=== PATIENT | female | born 1950 | race Hispanic/Latino ===

== ENCOUNTER 2019-08-26 18:31 | Emergency (ER) | payer MEDICARE, SELFPAY ==
--- NOTE | ~2019-08-26 | XR_ITS ---
EXAMINATION: XR chest 1V portable DATE: 08/26/2019 19:05 INDICATION: Cough. TECHNIQUE: A single frontal view of the chest was obtained. COMPARISON: CT abdomen and pelvis 12/15/2016 FINDINGS: The chest demonstrates clear lungs without pneumonia, pleural effusion, or pneumothorax. Th e heart size is normal. IMPRESSION: 1. No acute cardiopulmonary disease. Reviewed, dictated and finalized at location A.
[2019-08-26 18:36] VITALS: BP 134/57; PULSE 70; RESP 16; TEMP 37; O2SAT 100
--- NOTE | 2019-08-26 18:38 | ED.URI ---
HPI - URI/Sore Throat General Chief Complaint: Upper Respiratory Infection Stated Complaint: cough Time Seen by Provider: 08/26/19 18:32 Source: patient and RN notes reviewed Mode of arrival: ambulatory Limitations: no limitations History of Present Illness HPI Narrative: The pt does not speak Arabic so the Stratus was used to translate. A 68 y/o female presents to the ED with a constant dry cough for the past 1 month. She states that she has occasional chronic SOB. She notes that she was using Robitussin but denies it relieving her symptoms, so she stopped taking it. She denies any fevers, chills, wheezing, N/V/D, ABD pain, weakness, or dizziness. MD elicited complaint: cough (dry) Onset (ago): month(s) (1) Consistency: constant Relieving factors: nothing Associated symptoms: shortness of breath (occasional chronic) Treatments prior to arrival: cold medicine (Robitussin) Related Data Allergies Allergy/AdvReac Type Severity Reaction Status Date / Time No Known Allergies Allergy Verified 03/10/16 15:54 Review of Systems Review of Systems: All systems reviewed & are unremarkable except as noted in HPI and below Constitutional: Constitutional: Denies chills and Denies fever(s) Respiratory: Respiratory: Reports cough (dry), Reports dyspnea (occasional chronic) and Denies wheezing Gastrointestinal: Gastrointestinal: Denies abdominal pain, Denies diarrhea, Denies nausea and Denies vomiting Neurologic: Denies dizziness and Denies weakness PMFSH Past Medical History Medical History Arthritis Fibromyalgia GERD (gastroesophageal reflux disease) H/O: HTN (hypertension) Hx of cataract Hypercholesteremia Prolapsed bladder Uterine prolapse Surgical History Surgical History Surgical history unknown Family History Family History Father Family history of lung cancer, Onset Age: 80 Mother Family history of malignant neoplasm of ovary, Onset Age: 75 Social History Social History Smoking status: Never smoker Alcohol intake: never Exam Const: General: healthy appearing and no acute distress Nutritional Appearance: well nourished HENMT: Mouth: Yes lip normal and Yes moist mucous membranes Eyes: Conjunctivae: conjunctivae normal Pupils: Equal, round and reactive pupils present Resp: Effort & Inspection: normal respiratory effort Auscultation: clear to auscultation bilaterally Cardio: Rate: regular rate Rhythm: regular rhythm Heart sounds: no murmurs GI: GI Palp: Yes Soft to palpation and No Tenderness to palpation present (GI) Auscultation: normal bowel sounds Back/Spine/Pelvis: Other: Full ROM. Skin: General skin exam: normal color, dry skin and other (warm) Neuro: General: patient oriented x3 (alert) Speech: normal speech Extrem: General: full ROM Psych: Mental Status: mental status grossly normal Affect: normal affect Course Vital Signs Vital signs: Vital Signs Temperature 37.0 C 08/26/19 18:36 Pulse Rate 70 08/26/19 18:36 Respiratory Rate 16 08/26/19 18:36 Blood Pressure 134/57 L 08/26/19 18:36 Pulse Oximetry 100 08/26/19 18:36 Temperature 37.0 C 08/26/19 18:36 Pulse Rate 70 08/26/19 18:36 Respiratory Rate 16 08/26/19 18:36 Blood Pressure 134/57 L 08/26/19 18:36 Pulse Oximetry 100 08/26/19 18:36 MDM - URI/Sore Throat MDM Narrative Medical decision making narrative: She appears well. Vitals reassuring. CXR. Will discharge and ask her to self isolate. Differential Diagnosis Differential diagnosis: Likely upper respiratory infection and other (pneumonia, COVID-19) Medical Records Attestation: I reviewed the patient's medical records. Imaging Data Radiologist's impression: ITS Impressions Chest X-Ray 08/26/19 19:06 IMPRESSION: 1. No acute cardiopulmonary di
== END 2019-08-26 19:35 | disposition home or self-care (01) ==
LOC: ANHED 19:25
PROVIDERS: Emergency Provider Emergency Medicine
DX: J06.9 Acute upper respiratory infection, unspecified (principal); M19.90 Unspecified osteoarthritis, unspecified site; M79.7 Fibromyalgia; K21.9 Gastro-esophageal reflux disease without esophagitis; I10 Essential (primary) hypertension; E78.00 Pure hypercholesterolemia, unspecified
CPT/HCPCS: 71045; 99283

== ENCOUNTER 2020-03-05 10:38 | Outpatient (CLI) | payer MEDICARE, SELFPAY ==
--- NOTE | ~2020-03-05 | US_ITS ---
EXAMINATION: US right upper quadrant EXAM DATE: 03/05/2020 11:20 INDICATION: Right upper quadrant pain. TECHNIQUE: Multiple grayscale and Doppler images of the abdomen right upper quadrant were obtained (b y a technologist who performed the scan) and subsequently reviewed. There is no prior study for archie quintana. FINDINGS: The pancreatic head and body are normal in appearance. The pancreatic tail is not visualized. The l iver has normal echogenicity and contour. There are no focal liver lesions identified. There is no evidence of intrahepatic biliary duct dilation. Portal venous flow was seen in the hepatopedal, nor mal direction and has normal Doppler waveform. No right-sided hydronephrosis. Common bile duct measures 3 mm, which is normal. The gallbladder wall is normal in thickness, with ex pected amount of distention. No sonographic evidence of pericholecystic fluid. There is no cholelit hiases. Technologist performing exam reports patient did not demonstrate sonographic Palmer's sign. Please note that this sign is less reliable in patients who have received pain medication. IMPRESSION: 1. Unremarkable abdominal ultrasound exam. Reviewed, dictated and finalized at location B.
== END 2020-03-05 10:39 | disposition home or self-care (01) ==
PROVIDERS: PCP Physician Assistant; Visit Provider Internal Medicine Gastroenterology
DX: R10.11 Right upper quadrant pain (principal)
CPT/HCPCS: 76705

== ENCOUNTER 2020-07-19 21:19 | Emergency (ER) | payer MEDICARE, MEDICAID, SELFPAY ==
--- NOTE | ~2020-07-19 | CT_ITS ---
EXAMINATION: CTA chest PE protocol DATE: 07/20/2020 00:02 INDICATION: Chest pain, COVID 19 positive TECHNIQUE: Computed tomography angiography (CTA) of the chest was performed with 100 mL Omnipaque-350 intravenous contrast timed to evaluate the pulmonary arteries. Coronal maximum intensity projection 3D-reconstructions were created by the technologist. The dose-length product (DLP) was 601.30 mGy-cm. Automated exposure control and iterative reconstruction technique were employed. COMPARISON: None. FINDINGS: The pulmonary arteries are well-opacified. No pulmonary embolism is identified. There are s cattered patchy groundglass and nodular opacities of the lungs. No pleural effusion or pneumothorax i s identified. No pathologically enlarged thoracic lymph nodes are identified. The heart size is oleg l. There is mild thoracic spondylosis. IMPRESSION: 1. No pulmonary embolism. 2. Patchy nodular and groundglass opacities, consistent with COVID 19 pneumonia with the given clinic al history. Reviewed, dictated and finalized at location A. NESS PERFORMANCE SPECIALIST IMPRESSION: 1. No pulmonary embolism. 2. Patchy nodular and groundglass opacities, consistent with COVID 19 pneumonia with the given clinical history.
--- NOTE | ~2020-07-19 | XR_ITS ---
EXAMINATION: XR chest 1V portable EXAM DATE: 07/19/2020 22:14 INDICATION: COVID + 07/12/20 TECHNIQUE: Portable AP frontal chest x-ray was obtained. Comparison is made to prior examination from 08/26/2019. FINDINGS: Small amount of ill-defined right mid and lower lung zone airspace disease, could be develo ping COVID pneumonia given history provided. The lungs are otherwise clear. There are no pleural eff usions. The cardiomediastinal silhouette is within normal limits. There is no pneumothorax suspecte d. There are mild bony degenerative changes. There is aortic arteriosclerosis. IMPRESSION: Small amount of ill-defined right basilar airspace disease, possible developing pneumonia . Reviewed, dictated and finalized at location A. LRY STORE MANAGER IMPRESSION: Small amount of ill-defined right basilar airspace disease, possibl e developing pneumonia.
[2020-07-19 21:39] VITALS: BP 151/63; PULSE 69; RESP 18; TEMP 37.2; O2SAT 96
--- NOTE | 2020-07-19 21:59 | ECG_ITS ---
Measurements Intervals [place] Rate: 63 P: 66 KS: 115 QRS: 50 QRSD: 93 T: 51 QT: 417 QTc: 429 Interpretive Statements SINUS RHYTHM WITH SHORT [place] INTERVAL BORDERLINE ECG Electronically Signed On 07-20-2020 7:06:36 HEATER OPERATOR HELPER by Angel Kelly D.O.
--- NOTE | 2020-07-19 22:11 | ED.GENADULT ---
HPI - General Adult General Chief complaint: Upper Respiratory Infection Stated complaint: cough, covid+ Time Seen by Provider: 07/19/20 21:47 History of Present Illness HPI narrative: Patient is a 69-year-old female who presents the emergency department with chief complaint of chest discomfort. Patient reports that she was diagnosed on the with COVID-19 and has had a cough since then. The patient reports that today she had some discomfort in her chest and also her was having similar symptoms they decided to come to the emergency department for evaluation. Patient reports symptoms are worse with inspiration and improved with rest. Related Data Home Medications Medication Instructions Recorded Confirmed amlodipine 5 mg tablet 5 mg PO DAILY 07/13/20 lisinopril 10 mg tablet 10 mg PO DAILY 07/13/20 omeprazole 20 mg capsule,delayed 20 mg PO DAILY 07/13/20 release Allergies Allergy/AdvReac Type Severity Reaction Status Date / Time No Known Allergies Allergy Verified 03/10/16 15:54 Review of Systems Review of Systems: Narrative: A 10 system review of systems was completed on the patient and is negative except for what is stated in the HPI. Nursing and ancillary documentation was reviewed. [facility] Past Medical History Medical History (Updated 07/20/20 @ 00:40 by Rosas Finney MD) Arthritis Fibromyalgia GERD (gastroesophageal reflux disease) H/O: HTN (hypertension) Hx of cataract Hypercholesteremia Prolapsed bladder Uterine prolapse Surgical History Surgical History Surgical history unknown Family History Family History Father Family history of lung cancer, Onset Age: 80 Mother Family history of malignant neoplasm of ovary, Onset Age: 75 Social History Social History Smoking status: Never smoker Alcohol intake: never Exam Narrative: Exam Narrative: GENERAL: Well-appearing, well-nourished, and in no acute distress. HEAD: Normocephalic, atraumatic. EYES: PERRLA and EOMI. ENT: Nares clear, no rhinorrhea or epistaxis. Mucous membranes moist. NECK: Supple. CHEST: Clear to auscultation. No respiratory distress. HEART: Regular rate and rhythm. No murmur heard. Normal peripheral pulses. ABDOMEN: Soft, nontender, nondistended, normal active bowel sounds. EXTREMITIES: Normal range of motion. No edema. SKIN: Warm, dry, no rash. NEURO: No focal deficits. Alert and oriented x3. PSYCH: Normal mood and affect. Course Course Emergency Course: EKG is sinus rhythm rate of [address] elevation or ST depression Vital Signs Vital signs: Vital Signs Temperature 37.2 C 07/19/20 21:39 Pulse Rate 69 07/19/20 21:39 Respiratory Rate 18 07/19/20 21:39 Blood Pressure 151/63 H 07/19/20 21:39 Pulse Oximetry 96 07/19/20 21:39 Temperature 37.2 C 07/19/20 21:39 Pulse Rate 63 07/20/20 00:01 Respiratory Rate 18 07/20/20 00:01 Blood Pressure 110/96 H 07/20/20 00:01 Pulse Oximetry 98 07/20/20 00:01 Medical Decision Making Vital Signs Vital Signs: Vital Signs Temperature 37.2 C 07/19/20 21:39 Pulse Rate 69 07/19/20 21:39 Respiratory Rate 18 07/19/20 21:39 Blood Pressure 151/63 H 07/19/20 21:39 Pulse Oximetry 96 07/19/20 21:39 Temperature 37.2 C 07/19/20 21:39 Pulse Rate 63 07/20/20 00:01 Respiratory Rate 18 07/20/20 00:01 Blood Pressure 110/96 H 07/20/20 00:01 Pulse Oximetry 98 07/20/20 00:01 Lab Data Result diagrams: 07/19/20 22:15 07/19/20 22:15 Labs: Lab Results 07/19/20 07/19/20 07/19/20 Range/Units 22:15 22:15 22:15 WBC 5.8 (4.5-10.0) K/mm3 RBC 4.05 L (4.2-5.4) M/mm3 Hgb 12.3 (12.0-15.0) g/dL Hct 37.0 (37.0-47.0) % MCV 91.4 (80-100) fl MCH 30.4 (26-34) p
[2020-07-19 22:53] LABS: Basophils Percent Auto 0.5 % (0.2-1.2); Eosinophils Absolute Auto 0.1 K/mm3 (0-0.3); Eosinophils Percent Auto 1.7 % (0-4.4); Hemoglobin 12.3 g/dL (12.0-15.0); Immature Granulocyte Absolute 0.01 K/mm3 (0.00-0.031); Immature Granulocyte Percent A 0.2 % (0-0.5); Lymphocytes Percent Auto 41.1 % (18.3-44.2); Mean Corpuscular HGB Conc 33.2 g/dl (32-36); Mean Corpuscular Hemoglobin 30.4 pg (26-34); Mean Corpuscular Volume 91.4 fl (80-100); Mean Platelet Volume 9.5 fl (7.4-10.4); Monocytes Absolute Auto 0.5 K/mm3 (0.1-0.6); Monocytes Percent Auto 9.2 % (2.6-8.5); Neutrophils Absolute Auto 2.8 K/mm3 (1.3-6.7); Neutrophils Percent Auto 47.3 % (45.5-73.1); Platelet Count Result 213 k/mm3 (150-375); Red Blood Count 4.05 M/mm3 (4.2-5.4); Red Cell Distribution Width 12.3 % (11.5-14.5); White Blood Count 5.8 K/mm3 (4.5-10.0)
[2020-07-19 22:54] LABS: INR 0.9
[2020-07-19 22:55] LABS: Partial Thromboplastin Time 25.8 SECONDS (22.3-36.8)
[2020-07-19 23:00] LABS: Alanine Aminotransferase 19 U/L (4-35); Alkaline Phosphatase 48 U/L (38-126); Amylase 72 U/L (30-110); Anion Gap 5 mmol/L (8-16); Aspartate Amino Transferase 32 U/L (14-36); Bilirubin,Total 0.3 mg/dL (0.2-1.3); Blood Urea Nitrogen 20 mg/dL (7-17); Calcium 8.7 mg/dL (8.4-10.2); Carbon Dioxide 30 mmol/L (22-30); Chloride 103 mmol/L (98-107); Cholesterol 150 mg/dL (0-200); Estimated CRCL calculation 55 ml/min; Estimated Glomerular Filt Rate 55; Glucose 102 mg/dL (65-105); HDL Direct 59 mg/dL; Lipase 108 U/L (23-300); Magnesium 1.7 mg/dL (1.6-2.3); Phosphorus 3.5 mg/dL (2.5-4.5); Potassium 3.8 mmol/L (3.4-5.0); Sodium 138 mmol/L (137-145); Triglycerides 109 mg/dL (<150)
[2020-07-19 23:08] LABS: NT Pro B Type Natriuretic Pept 146 PG/ML (5-100)
[2020-07-19 23:11] LABS: LDL Cholesterol Direct 68 mg/dL
[2020-07-20 00:01] VITALS: BP 110/96; PULSE 63; RESP 18; O2SAT 98
[2020-07-20 01:00] VITALS: BP 126/72; PULSE 67; RESP 18; O2SAT 97
== END 2020-07-20 01:00 | disposition home or self-care (01) ==
PROVIDERS: Emergency Provider Emergency Medicine; PCP Physician Assistant
DX: U07.1 COVID-19 (principal); J12.82 Pneumonia due to coronavirus disease 2019; I10 Essential (primary) hypertension; E78.00 Pure hypercholesterolemia, unspecified; M19.90 Unspecified osteoarthritis, unspecified site; M79.7 Fibromyalgia; K21.9 Gastro-esophageal reflux disease without esophagitis; R94.31 Abnormal electrocardiogram [ECG] [EKG]
CPT/HCPCS: 36415; 71045; 71275; 80053; 80061; 82150; 83690; 83735; 83880; 84100; 85025; 85610; 85730; 93005; 99284; Q9967

== ENCOUNTER 2020-07-29 15:30 | Emergency (ER) | payer MEDICARE, MEDICAID, SELFPAY ==
[2020-07-29] VITALS (13 sets, daily range): BP systolic 101–145; BP diastolic 49–81; PULSE 51–64; RESP 10–21; TEMP 36.4; O2SAT 95–100
--- NOTE | ~2020-07-29 | CT_ITS ---
EXAMINATION: CTA chest PE protocol DATE: 07/29/2020 17:34 INDICATION: Cough. TECHNIQUE: Computed tomography angiography (CTA) of the chest was performed with 100 mL Omnipaque-350 intravenous contrast timed to evaluate the pulmonary arteries. Coronal maximum intensity projection 3D-reconstructions were created by the technologist. Automated exposure control and iterative reconst ruction technique were employed. The dose-length product was 528.96 mGy-cm. COMPARISON: Chest CT 07/19/2020 FINDINGS: There are small airspace opacities in superior segment right lower lobe. There is mild atel ectasis bilaterally. There are a few pulmonary nodules measuring up to 4 mm, likely benign. There is mosaic attenuation in the lungs, likely small airways disease. No pleural effusion. The heart size is normal. No pericardial effusion. There are coronary artery calcifications. There is no pulmonary emb olus. There is mild thoracic spondylosis. IMPRESSION: 1. No pulmonary embolus. Sensitivity is mildly decreased by motion artifact. 2. Small airspace opacities in superior segment right lower lobe, consistent with pneumonia. Reviewed, dictated and finalized at location A. EAR CONSULTANT IMPRESSION: 1. No pulmonary embolus. Sensitivity is mildly decreased by motion artifact. 2. Small airspace opacities in superior segment right lower lobe, consistent wi th pneumonia.
--- NOTE | ~2020-07-29 | XR_ITS ---
EXAMINATION: XR chest 1V portable DATE: 07/29/2020 16:10 INDICATION: Shortness of breath. COVID-19 pneumonia. TECHNIQUE: A single frontal view of the chest was obtained. COMPARISON: Chest single view 07/19/2020, chest CT 07/19/2020 FINDINGS: There are mild airspace opacities in right midlung zone. No pleural effusion or pneumothora x. The heart size is normal. IMPRESSION: 1. Persistent mild airspace opacities in right midlung zone, consistent with pneumonia. Reviewed, dictated and finalized at location A. D TURNER IMPRESSION: 1. Persistent mild airspace opacities in right midlung zone, consistent with pn eumonia.
--- NOTE | 2020-07-29 15:56 | ECG_ITS ---
Measurements Intervals [place] Rate: 55 P: 55 NM: 154 QRS: 36 QRSD: 85 T: 43 QT: 425 QTc: 408 Interpretive Statements SINUS BRADYCARDIA BORDERLINE ECG Electronically Signed On 07-29-2020 20:07:30 MAINTENANCE PAINTER by Angel Kelly D.O.
[2020-07-29 16:25] LABS: Basophils Absolute Auto 0.1 K/mm3 (0.0-0.1); Basophils Percent Auto 0.9 % (0.2-1.2); Eosinophils Absolute Auto 0.2 K/mm3 (0-0.3); Eosinophils Percent Auto 2.3 % (0-4.4); Hematocrit 36.6 % (37.0-47.0); Hemoglobin 12.2 g/dL (12.0-15.0); Immature Granulocyte Absolute 0.02 K/mm3 (0.00-0.031); Immature Granulocyte Percent A 0.3 % (0-0.5); Lymphocytes Absolute Auto 2.16 K/mm3 (0.9-3.2); Lymphocytes Percent Auto 33.2 % (18.3-44.2); Mean Corpuscular HGB Conc 33.3 g/dl (32-36); Mean Corpuscular Hemoglobin 30.7 pg (26-34); Mean Corpuscular Volume 92.2 fl (80-100); Mean Platelet Volume 9.5 fl (7.4-10.4); Monocytes Absolute Auto 0.5 K/mm3 (0.1-0.6); Monocytes Percent Auto 8.3 % (2.6-8.5); Neutrophils Absolute Auto 3.6 K/mm3 (1.3-6.7); Platelet Count Result 214 k/mm3 (150-375); Red Blood Count 3.97 M/mm3 (4.2-5.4); Red Cell Distribution Width 12.7 % (11.5-14.5); White Blood Count 6.5 K/mm3 (4.5-10.0)
[2020-07-29 16:36] LABS: INR 0.9; Prothrombin Time 13.1 Seconds (11.1-14.7)
[2020-07-29 16:37] LABS: Partial Thromboplastin Time 27.2 SECONDS (22.3-36.8)
[2020-07-29 16:39] LABS: D Dimer 0.53 ug/mL (<0.48)
[2020-07-29 16:46] LABS: Alanine Aminotransferase 15 U/L (4-35); Albumin Level 3.7 g/dL (3.5-5.1); Alkaline Phosphatase 47 U/L (38-126); Anion Gap 5 mmol/L (8-16); Aspartate Amino Transferase 26 U/L (14-36); Bilirubin,Total 0.3 mg/dL (0.2-1.3); Blood Urea Nitrogen 17 mg/dL (7-17); Calcium 8.7 mg/dL (8.4-10.2); Carbon Dioxide 28 mmol/L (22-30); Chloride 106 mmol/L (98-107); Estimated CRCL calculation 85 ml/min; Estimated Glomerular Filt Rate > 60; Glucose 103 mg/dL (65-105); Potassium 3.9 mmol/L (3.4-5.0); Sodium 139 mmol/L (137-145)
--- NOTE | 2020-07-29 16:49 | ED.GENADULT ---
HPI - General Adult General Chief complaint: Upper Respiratory Infection Stated complaint: cough/covid+ 17 days ago Time Seen by Provider: 07/29/20 15:47 Source: patient and family Mode of arrival: ambulatory Limitations: language barrier History of Present Illness HPI narrative: Patient is a 69-year-old female who presents with persistent cough was diagnosed with Covid and has been cleared by the health department for 5 days patient on arrival to emergency department has had continued coughing causing irritation of the chest denies vomiting diarrhea dyspnea or fever patient is taking Tessalon Perles with minimal improvement Related Data Home Medications Medication Instructions Recorded Confirmed amlodipine 5 mg tablet 5 mg PO DAILY 07/13/20 lisinopril 10 mg tablet 10 mg PO DAILY 07/13/20 Allergies Allergy/AdvReac Type Severity Reaction Status Date / Time No Known Allergies Allergy Verified 07/29/20 17:36 Review of Systems Review of Systems: All systems reviewed & are unremarkable except as noted in HPI and below PMFSH Past Medical History Medical History (Updated 07/29/20 @ 18:25 by Yasir Best PA-C) Arthritis Fibromyalgia GERD (gastroesophageal reflux disease) H/O: HTN (hypertension) Hx of cataract Hypercholesteremia Prolapsed bladder Uterine prolapse Surgical History Surgical History Surgical history unknown Family History Family History Father Family history of lung cancer, Onset Age: 80 Mother Family history of malignant neoplasm of ovary, Onset Age: 75 Social History Social History Smoking status: Never smoker Alcohol intake: never Exam Narrative: Exam Narrative: GENERAL: Well-appearing, well-nourished, and in no acute distress. HEAD: Normocephalic, atraumatic. EYES: PERRLA and EOMI. ENT: Nares clear, no rhinorrhea or epistaxis. Mucous membranes moist. CHEST: Clear to auscultation. No respiratory distress. No wheezes rales or rhonchi HEART: Regular rate and rhythm. No murmur heard. Normal peripheral pulses. EXTREMITIES: Normal range of motion. No edema. SKIN: Warm, dry, no rash. NEURO: No focal deficits. Alert and oriented x3. PSYCH: Normal mood and affect. Course Course Emergency Course: Patient evaluated with continued URI symptoms status post Covid resolution patient found to have pneumonia is not not in any distress is not hypoxic felt appropriate for outpatient reevaluation will be given antibiotics and inhaler and supportive medications advised to follow-up with primary care patient agrees with this plan is also been given reasons to return ABCs and vital signs intact and stable Vital Signs Vital signs: Vital Signs Temperature 97.5 F L 07/29/20 15:33 Pulse Rate 64 07/29/20 15:33 Respiratory Rate 20 07/29/20 15:33 Blood Pressure 137/49 L 07/29/20 15:33 Pulse Oximetry 98 07/29/20 15:33 Temperature 97.5 F L 07/29/20 15:33 Pulse Rate 55 L 07/29/20 17:31 Respiratory Rate 17 07/29/20 17:31 Blood Pressure 138/65 07/29/20 17:31 Pulse Oximetry 96 07/29/20 17:31 Medical Decision Making MDM Narrative Medical decision making narrative: Patient will be treated for pneumonia felt appropriate for outpatient reevaluation otherwise healthy no history of tobacco or cardiopulmonary disease will be treated symptomatically Vital Signs Vital Signs: Vital Signs Temperature 97.5 F L 07/29/20 15:33 Pulse Rate 64 07/29/20 15:33 Respiratory Rate 20 07/29/20 15:33 Blood Pressure 137/49 L 07/29/20 15:33 Pulse Oximetry 98 07/29/20 15:33 Temperature 97.5 F L 07/29/20 15:33 Pulse Rate 55 L 07/29/20 17:31 Respiratory Rate 17 07/29/20 17:31 Blood Pressure 138/65 07/29/20 17:31 Pulse Oximetry 96 07/29/20 17:31 Lab Data Result diagrams: 07/03
[2020-07-29 16:52] LABS: Troponin I < 0.012 ng/mL (0.000-0.034)
== END 2020-07-29 19:11 | disposition home or self-care (01) ==
PROVIDERS: Emergency Medicine Emergency Medical Services; Emergency Provider Emergency Medicine; PCP Physician Assistant
DX: U07.1 COVID-19 (principal); J12.82 Pneumonia due to coronavirus disease 2019; M19.90 Unspecified osteoarthritis, unspecified site; M79.7 Fibromyalgia; K21.9 Gastro-esophageal reflux disease without esophagitis; I10 Essential (primary) hypertension; E78.00 Pure hypercholesterolemia, unspecified; N81.4 Uterovaginal prolapse, unspecified; R00.1 Bradycardia, unspecified
CPT/HCPCS: 36415; 71045; 71275; 80053; 84484; 85025; 85380; 85610; 85730; 93005; 99284; Q9967

== ENCOUNTER 2020-08-30 12:40 | Outpatient (CLI) | payer MEDICARE, MEDICAID, SELFPAY | END 2020-08-30 12:41 | disposition home or self-care (01) | LOC: ANHSURGERY 12:44 | PROVIDERS: PCP Physician Assistant; Visit Provider Urology | DX: Z01.812 Encounter for preprocedural laboratory examination (principal); Z51.81 Encounter for therapeutic drug level monitoring; Z79.899 Other long term (current) drug therapy | CPT/HCPCS: 87086; 87088 ==

== ENCOUNTER → 2020-09-04 04:06 | Outpatient (CLI) | payer MEDICARE, MEDICAID, SELFPAY ==
[2020-09-04 19:04] LABS: SARS-CoV-2 RNA PCR Negative
== END ==
PROVIDERS: PCP Physician Assistant; Visit Provider Urology
DX: Z01.812 Encounter for preprocedural laboratory examination (principal); Z20.822 Contact with and (suspected) exposure to COVID-19
CPT/HCPCS: C9803; U0003; U0005

== ENCOUNTER 2020-09-07 01:09 | Day surgery (SDC) | payer MEDICARE, MEDICAID, SELFPAY ==
[2020-08-30 13:57] VITALS: BP 134/58; PULSE 63; RESP 16; TEMP 36.8; O2SAT 97; BMI 35.4
--- NOTE | 2020-09-01 11:09 | P.HP_ITS ---
H&P: HPI History of Present Illness Date/Time: 09/01/20 11:09 This is a 69-year-old female status post robotic colpopexy and urethral sling. She has had 6 months of a bothersome vaginal bulge without stress incontinence. She is here today for repair of her cystocele Chief Complaint: cystocele Review of Systems Review of Systems: All systems reviewed & are unremarkable except as noted in HPI and below PMFSH Past Medical History Medical History (Updated 09/01/20 @ 11:14 by Redd Dangelo MD) Arthritis Fibromyalgia GERD (gastroesophageal reflux disease) H/O: HTN (hypertension) Hx of cataract Hypercholesteremia Prolapsed bladder Uterine prolapse Surgical History Surgical History Surgical history unknown Family History Family History Father Family history of lung cancer, Onset Age: 80 Mother Family history of malignant neoplasm of ovary, Onset Age: 75 Social History Social History Smoking status: Never smoker Alcohol intake: never Spiritual care concerns: No Meds Home Medications and Allergies Home Medications Medication Instructions Recorded Confirmed Type lisinopril 10 mg tablet 10 mg PO DAILY 07/13/20 08/30/20 History cyanocobalamin (vitamin B-12) 1,000 mcg PO DAILY 08/30/20 08/30/20 History loratadine [Claritin] 10 mg PO PRN PRN 08/30/20 08/30/20 History multivitamin-iron (hematinic) 1 tablet PO DAILY 08/30/20 08/30/20 History [Complete Vitamin] omega-3 fatty acids [[place] 3 Fish 1,000 mg PO DAILY 08/30/20 08/30/20 History Oil] omeprazole 40 mg PO DAILY 08/30/20 08/30/20 History simvastatin 40 mg PO DAILY 08/30/20 08/30/20 History Allergies Allergy/AdvReac Type Severity Reaction Status Date / Time No Known Allergies Allergy Verified 08/30/20 13:03 Exam Const: General: cooperative, healthy appearing and comfortable; No ill appearing HENMT: Head: normal to inspection Face and sinus: normal facial exam Eyes: General: appearance normal, both eyes and all related structures Resp: Effort & Inspection: normal respiratory effort and able to speak in complete sentences GI: Inspection: normal to inspection : Bimanual Exam- Adnexa, other: cystocele Back/Spine/Pelvis: Back: no CVA tenderness Skin: General skin exam: normal color and no rashes or lesions noted Neuro: General: patient oriented x3 Assessment and Plan Assessment and plan (1) Cystocele: Qualifiers: Cystocele location: midline Qualified Code(s): N81.11 - Cystocele, midline Status: Acute Assessment and Plan: cystocele repair
[2020-09-07] VITALS (10 sets, daily range): BP systolic 120–159; BP diastolic 46–91; PULSE 57–74; RESP 12–20; TEMP 36–36.4; O2SAT 94–100
[2020-09-07] MEDS: LACTATED RINGERS 1,000 ML 30 ML IV CONT ×2 (07:46→10:07)
--- NOTE | 2020-09-07 08:23 | WPDANESEPPF ---
Anes - Initial Pre Proc Eval Procedure: Operation Date: 09/07/20 09:00 Proposed Procedures p Cystocele And Rectocele Repair - Redd Dangelo MD Date/Time: 09/07/20 08:23 Surgeon: Redd Dangelo MD Pre Op Diagnosis: Cystocele, Frequency, Rectocele Patient Data Age: 69 Gender: F Height: 5 ft 5 in Weight: 96.4 kg Last Vital Signs Temp 36.0 C L 09/07/20 07:30 Pulse 60 09/07/20 07:30 Resp 18 09/07/20 07:30 BP 137/51 L 09/07/20 07:30 Pulse Ox 98 09/07/20 07:30 Allergies Allergy/AdvReac Type Severity Reaction Status Date / Time No Known Allergies Allergy Verified 09/07/20 07:52 Home Medications Medication Instructions Recorded Confirmed Type lisinopril 10 mg tablet 10 mg PO DAILY 07/13/20 09/07/20 History cyanocobalamin (vitamin B-12) 1,000 mcg PO DAILY 08/30/20 09/07/20 History loratadine [Claritin] 10 mg PO PRN PRN 08/30/20 09/07/20 History multivitamin-iron (hematinic) 1 tablet PO DAILY 08/30/20 09/07/20 History [Complete Vitamin] omega-3 fatty acids [[place] 3 Fish 1,000 mg PO DAILY 08/30/20 09/07/20 History Oil] omeprazole 40 mg PO DAILY 08/30/20 09/07/20 History simvastatin 40 mg PO DAILY 08/30/20 09/07/20 History Patient hx anesthesia problems: none Family hx anesthesia problems: none PMFSH Past Medical History Medical History Arthritis Fibromyalgia GERD (gastroesophageal reflux disease) H/O: HTN (hypertension) Hx of cataract Hypercholesteremia Prolapsed bladder Uterine prolapse Surgical History Surgical History Surgical history unknown Family History Family History Father Family history of lung cancer, Onset Age: 80 Mother Family history of malignant neoplasm of ovary, Onset Age: 75 Social History Social History Smoking status: Never smoker Alcohol intake: never Living arrangements: with family Spiritual care concerns: No Anes - Eval Final PreProcedure Day of Procedure 09/07/20 08:23 Patient weight: obese Heart: regular rate and rhythm Lungs: clear to auscultation Airway: Mallampati scale class II Neurological: alert and oriented Last oral intake: >/= 8 hours ASA classification: II Emergent: no Anesthetic plan: proceed Anesthesia type and monitoring: general ETT and standard monitoring Informed Consent: The patient's anesthetic plan and its attendant risks and benefits were discussed with the patient/family/POA. Questions were solicited and answers provided to the satisfaction of the patient/family/POA.
--- NOTE | 2020-09-07 08:35 | WPDHPUPDATE1 ---
History and Physical Update Update Date/Time: 09/07/20 08:35 History and Physical has been reviewed, including an updated exam of the patient. There are NO changes in the patient's condition. Risks, benefits, and alternatives have been discussed and questions answered. Patient agrees to proceed with procedure.
[2020-09-07] MEDS: ceFAZolin 2 GM/D5W 50 ML 2 GM/50 ML BAG IVPB (08:55)
[2020-09-07] MEDS: BUPIVACAINE/EPINEPHRINE 0.5% 30 ML VIAL INFILTRATE (09:26)
--- NOTE | 2020-09-07 10:04 | PM.PROC ---
Procedure Note - Detailed Date of procedure: 09/07/20 Pre-op diagnosis: Cystocele, Frequency, Rectocele Cystocele, rectocele, female perineal laxity Post-op diagnosis: same Procedure performed: Cystocele repair/anterior colporrhaphy Rectocele repair Perineoplasty Cystoscopy Description of procedure: A She understood the risks of bleeding, infection, damage to surrounding organs, dyspareunia, postoperative stress incontinence, and recurrence of prolapse. She agrees to proceed. She is status post robotic colpopexy and sling procedure. She has no stress incontinence by history or by urodynamics. She has correctly identified and informed consent was obtained and she was brought to the operating room. She was given general anesthesia. She was placed in the dorsal thigh position. She was prepped and draped in sterile fashion. Given appropriate perioperative antibiotics. A time-out was performed. I placed a Roy catheter. I placed a [place] retractor. I infiltrated the subcutaneous tissues of the anterior vaginal wall with local mixed with injectable saline. I made a midline vaginal incision. I dissected out laterally dissecting the mucosa off the underlying fascial structures. I dissected towards the vaginal apex as well. I then performed a standard cystocele repair with plicating sutures of 0 Vicryl. This reduced the cystocele. I then trimmed excess vaginal mucosa. I closed the vaginal closed with a running 2 0 Vicryl suture. I then grasped the rectocele with Allis clamps. I infiltrated the subcutaneous tissues. I made a midline vaginal incision on the posterior wall. I dissected the mucosa off the underlying fascial structures. I took great care not to injure the rectum or underlying structures. She had a very small distal rectocele. I then plicated the perirectal tissues with an 0 Vicryl suture. This resulted in reduction of the rectocele. I trimmed excess vaginal mucosa. I then closed the mucosal a running 2 0 Vicryl suture. I then anesthetized the jovita-shaped area of skin on the perineum. I removed this area of skin. I performed a perineorrhaphy with 0 Vicryl suture. A is a 2 Vicryl to close the mucosa. There is excellent perineal support without undue narrowing of the vagina. I then placed a vaginal packing. I then performed cystoscopy. The bladder is examined. There is no surgical artifact or injury. Both ureteral orifices were seen to excrete clear yellow urine. At the conclusion she was awakened and transferred to the PACU in stable condition. Sponge count is correct x2. Implants: None Anesthesia: GETA Surgeon: Redd Dangelo MD Drains: No Packing: No Pathology: none sent Complications: No immediate complications Condition: stable Disposition: PACU
[2020-09-07] MEDS: fentaNYL CITRATE INJ (*CRX) 100 MCG/2 ML VIAL 25 MCG IV PUSH ×4 (10:23→10:53)
--- NOTE | 2020-09-07 10:43 | SUR.PHASEI ---
1015 - dr. scott instructed to remove packing at 1030. 1035 - packing removed. blood noted on dressing. no active bleeding noted. will continue to monitor
== END 2020-09-07 12:13 | disposition home or self-care (01) ==
PROVIDERS: PCP Physician Assistant; Visit Provider Urology
PROC: (CPT 57260; principal; 2020-09-07 09:00)
DX: N81.11 Cystocele, midline (principal); N81.6 Rectocele; M19.90 Unspecified osteoarthritis, unspecified site; M79.7 Fibromyalgia; K62.89 Other specified diseases of anus and rectum; K21.9 Gastro-esophageal reflux disease without esophagitis; E78.00 Pure hypercholesterolemia, unspecified; I10 Essential (primary) hypertension; R35.0 Frequency of micturition
CPT/HCPCS: 57260; A9270; J0690; J1100; J2250; J2405; J2704; J3010; J7030; J7120; Q9968

== ENCOUNTER 2020-11-14 12:58 | Emergency (ER) | payer MEDICARE, MEDICAID, SELFPAY ==
--- NOTE | ~2020-11-14 | XR_ITS ---
XR chest 2V 11/14/2020 13:18 Indication: Cough for 10 days. Sore throat. Procedure: PA and lateral views of the chest Comparison: 07/29/2020 Findings: Focal nodular infiltrate right upper lung zone, suspicious for pneumonia versus parenchymal nodule. Heart size normal. No pleural effusion, edema, pneumothorax. No acute osseous abnormality. Impression: 1: Focal nodular density right upper lung zone, most likely focal pneumonia, although parenchymal nod ule not excluded. Recommend conservative therapy with follow-up x-ray to ensure resolution. Reviewed, dictated and finalized at location A. Impression: 1: Focal nodular density right upper lung zone, most likely focal pneumonia, al though parenchymal nodule not excluded. Recommend conservative therapy with fol low-up x-ray to ensure resolution.
[2020-11-14 13:03] VITALS: BP 136/51; PULSE 65; RESP 17; TEMP 36.1; O2SAT 95
--- NOTE | 2020-11-14 14:25 | ED.GENADULT ---
HPI - General Adult General Chief complaint: Upper Respiratory Infection Stated complaint: coughing Time Seen by Provider: 11/14/20 13:40 Source: patient and family Mode of arrival: ambulatory Limitations: language barrier (Patient's is translating) History of Present Illness HPI narrative: Patient is a 69-year-old female who presented with upper respiratory symptoms for 1 week noting sore throat congestion rhinorrhea and productive cough of phlegm worse in the mornings and evenings patient denies any vomiting diarrhea chest pain patient denies tobacco abuse has been taking [id number] medications with minimal improvement Related Data Home Medications Medication Instructions Recorded Confirmed lisinopril 10 mg tablet 10 mg PO DAILY 07/13/20 09/07/20 cyanocobalamin (vitamin B-12) 1,000 mcg PO DAILY 08/30/20 09/07/20 loratadine [Claritin] 10 mg PO PRN PRN 08/30/20 09/07/20 multivitamin-iron (hematinic) 1 tablet PO DAILY 08/30/20 09/07/20 omega-3 fatty acids 1,000 mg PO DAILY 08/30/20 09/07/20 omeprazole 40 mg PO DAILY 08/30/20 09/07/20 simvastatin 40 mg PO DAILY 08/30/20 09/07/20 Allergies Allergy/AdvReac Type Severity Reaction Status Date / Time No Known Allergies Allergy Verified 09/07/20 07:52 Review of Systems Review of Systems: All systems reviewed & are unremarkable except as noted in HPI and below PMFSH Past Medical History Medical History (Updated 11/14/20 @ 14:40 by Yasir Best PA-C) Arthritis Fibromyalgia GERD (gastroesophageal reflux disease) H/O: HTN (hypertension) Hx of cataract Hypercholesteremia Prolapsed bladder Uterine prolapse Surgical History Surgical History Surgical history unknown Family History Family History Father Family history of lung cancer, Onset Age: 80 Mother Family history of malignant neoplasm of ovary, Onset Age: 75 Social History Social History Smoking status: Never smoker Alcohol intake: never Gender identity (if verbalized by the patient): Female Spiritual care concerns: No Exam Narrative: Exam Narrative: GENERAL: Well-appearing, well-nourished, and in no acute distress. HEAD: Normocephalic, atraumatic. EYES: PERRLA and EOMI. ENT: Nares clear, no rhinorrhea or epistaxis. Mucous membranes moist. Oropharynx without tonsillar hypertrophy exudate or other lesions. CHEST: Clear to auscultation. No respiratory distress. No wheezes rales or rhonchi HEART: Regular rate and rhythm. No murmur heard. Normal peripheral pulses. EXTREMITIES: Normal range of motion. No edema. SKIN: Warm, dry, no rash. NEURO: No focal deficits. Alert and oriented x3. Cranial nerves II through XII grossly intact PSYCH: Normal mood and affect. Course Course Emergency Course: Patient in the room no distress aware of case findings treatment plan diagnosis will be treated for pneumonia will follow with primary care in 1 week for repeat imaging and evaluation will return if symptoms worsen has been given reasons to return is afebrile nontoxic-appearing no distress without emesis ABCs and vital signs intact and stable Vital Signs Vital signs: Vital Signs Temperature 97.0 F L 11/14/20 13:03 Pulse Rate 65 11/14/20 13:03 Respiratory Rate 17 11/14/20 13:03 Blood Pressure 136/51 L 11/14/20 13:03 Pulse Oximetry 95 11/14/20 13:03 Temperature 97.0 F L 11/14/20 13:03 Pulse Rate 65 11/14/20 13:03 Respiratory Rate 17 11/14/20 13:03 Blood Pressure 136/51 L 11/14/20 13:03 Pulse Oximetry 95 11/14/20 13:03 Medical Decision Making [facility] Narrative Medical decision making narrative: Patient presented with upper respiratory symptoms will be treated for pneumonia will follow with primary care for further evaluation patient is afebrile nontoxic-appearing no distress and felt appropriate
[2020-11-14 14:51] VITALS: BP 138/62; PULSE 76; RESP 18; O2SAT 99
== END 2020-11-14 14:54 | disposition home or self-care (01) ==
PROVIDERS: Emergency Provider Emergency Medicine; PCP Physician Assistant
DX: J18.9 Pneumonia, unspecified organism (principal); M19.90 Unspecified osteoarthritis, unspecified site; M79.7 Fibromyalgia; K21.9 Gastro-esophageal reflux disease without esophagitis; I10 Essential (primary) hypertension; E78.00 Pure hypercholesterolemia, unspecified; N81.10 Cystocele, unspecified; H26.9 Unspecified cataract
CPT/HCPCS: 71046; 87081; 87880; 99283

== ENCOUNTER 2020-12-04 08:37 | Outpatient (CLI) | payer MEDICARE, MEDICAID, SELFPAY ==
[2020-12-04 09:00] LABS: Hematocrit 37.2 % (37.0-47.0); Mean Corpuscular HGB Conc 32.3 g/dl (32-36); Mean Platelet Volume 9.1 fl (7.4-10.4); Platelet Count Result 193 k/mm3 (150-375); Red Cell Distribution Width 12.9 % (11.5-14.5); White Blood Count 6.2 K/mm3 (4.5-10.0)
[2020-12-04 09:10] LABS: Anion Gap 6 mmol/L (8-16); Blood Urea Nitrogen 17 mg/dL (7-17); Calcium 8.7 mg/dL (8.4-10.2); Carbon Dioxide 30 mmol/L (22-30); Chloride 102 mmol/L (98-107); Estimated Glomerular Filt Rate > 60; Glucose 104 mg/dL (65-105); Potassium 4.2 mmol/L (3.4-5.0); Sodium 138 mmol/L (137-145)
[2020-12-04 09:11] LABS: INR 0.9; Partial Thromboplastin Time 25.3 SECONDS (22.3-36.8); Prothrombin Time 12.2 Seconds (11.1-14.7)
== END 2020-12-04 08:38 | disposition home or self-care (01) ==
PROVIDERS: PCP Physician Assistant; Visit Provider Specialist
DX: E78.2 Mixed hyperlipidemia (principal); I10 Essential (primary) hypertension; R07.9 Chest pain, unspecified; R06.09 Other forms of dyspnea; R60.0 Localized edema
CPT/HCPCS: 36415; 80048; 85027; 85610; 85730

== ENCOUNTER 2020-12-13 12:15 | Outpatient (CLI) | payer MEDICARE, MEDICAID, SELFPAY ==
--- NOTE | ~2020-12-13 | XR_ITS ---
XR chest 2V DATE: 12/13/2020 12:34 INDICATION: Pneumonia TECHNIQUE: PA and lateral views COMPARISON: 11/14/2020 PA and lateral chest FINDINGS: Normal heart size. Is aortic calcification and mild unfolding. No hilar or mediastinal enla rgement. No pulmonary infiltrate or consolidation, pleural effusion or pulmonary vascular congestion or pneumo thorax is detected. IMPRESSION: No active cardiopulmonary disease; resolution of focal right upper lung infiltrates since 11/14/2020 Reviewed, dictated and finalized at location A.
== END 2020-12-13 12:16 | disposition home or self-care (01) ==
PROVIDERS: PCP Physician Assistant; Visit Provider Physician Assistant
DX: J18.9 Pneumonia, unspecified organism (principal)
CPT/HCPCS: 71046

== ENCOUNTER 2021-02-06 18:11 | Emergency (ER) | payer MEDICARE, MEDICAID, SELFPAY ==
--- NOTE | ~2021-02-06 | XR_ITS ---
XR shoulder LT min 2V 02/06/2021 18:59 Indication: Left shoulder pain. Tendinitis. Procedure: 5 views left shoulder Comparison: No prior studies for comparison. Findings: Mild osteoarthritis of the acromioclavicular joint. No fracture, subluxation or dislocation . No significant soft tissue abnormality. No foreign bodies. Impression: 1: No acute fracture. Reviewed, dictated and finalized at location A. Impression: 1: No acute fracture.
--- NOTE | ~2021-02-06 | XR_ITS ---
XR knee RT 3V 02/06/2021 18:58 Indication: Right knee pain and swelling Procedure: 3 views right knee Comparison: No prior studies for comparison. Findings: Mild osteoarthritis. Small joint effusion. No acute fracture or traumatic malalignment. Impression: 1: No acute fracture. Reviewed, dictated and finalized at location A. Impression: 1: No acute fracture.
[2021-02-06 18:33] VITALS: BP 149/68; PULSE 63; RESP 17; TEMP 36.5; O2SAT 98
[2021-02-06 21:03] VITALS: BP 148/77; PULSE 68; RESP 17; O2SAT 100
--- NOTE | 2021-02-06 21:25 | ED.GENADULT ---
HPI - General Adult General Chief complaint: Extremity Injury, Lower Stated complaint: L Shoulder tendonitis,swelling R Knee Time Seen by Provider: 02/06/21 21:17 Source: patient and family Mode of arrival: ambulatory Limitations: language barrier History of Present Illness HPI narrative: 70-year-old with a history of hypertension here with complaints of left shoulder and right knee pain for past few days. states that she has been using crutches mostly on the left side for past 1 week as her right knee is giving her a lot of pain. She denies any trauma. She states that she is unable to raise her shoulder because of the pain. She denies any other complaints at this time. states that he has been she has been taking Tylenol every 6 hours with no relief. Onset (ago): week(s) (1) Location: upper extremity (Left shoulder) and lower extremity (Right knee) Radiation: neck Severity: moderate Quality: aching Pain Consistency: constant Relieving factors: none Exacerbating factors: movement Associated symptoms: denies other symptoms Related Data Home Medications Medication Instructions Recorded Confirmed lisinopril 10 mg tablet 10 mg PO DAILY 07/13/20 09/07/20 cyanocobalamin (vitamin B-12) 1,000 mcg PO DAILY 08/30/20 09/07/20 loratadine [Claritin] 10 mg PO PRN PRN 08/30/20 09/07/20 multivitamin-iron (hematinic) 1 tablet PO DAILY 08/30/20 09/07/20 omega-3 fatty acids 1,000 mg PO DAILY 08/30/20 09/07/20 omeprazole 40 mg PO DAILY 08/30/20 09/07/20 simvastatin 40 mg PO DAILY 08/30/20 09/07/20 Allergies Allergy/AdvReac Type Severity Reaction Status Date / Time No Known Allergies Allergy Verified 02/06/21 21:06 Review of Systems Review of Systems: All systems reviewed & are unremarkable except as noted in HPI and below Constitutional: Constitutional: Reports no additional constitutional complaints Eyes: Eyes: Reports no additional eye complaints ENT: Reports system reviewed and no additional complaints, except as documented Cardiovascular: Cardiovascular: Reports no additional cardiovascular complaints Respiratory: Respiratory: Reports no additional respiratory complaints Gastrointestinal: Gastrointestinal: Reports no additional gastrointestinal complaints Musculoskeletal: Musculoskeletal: Reports as per HPI Neurologic: Reports system reviewed and no additional complaints, except as documented Psychiatric: Psychiatric: Reports no additional psychiatric complaints Endocrine: Endocrine: Reports no additional endocrine complaints Hematologic/Lymphatic: Hematologic/Lymphatic: Reports no additional hematologic/lymphatic complaints [facility] Past Medical History Medical History (Updated 02/06/21 @ 21:31 by Donnell Cheatham MD) Arthritis Fibromyalgia GERD (gastroesophageal reflux disease) H/O: HTN (hypertension) Hx of cataract Hypercholesteremia Prolapsed bladder Uterine prolapse Surgical History Surgical History Surgical history unknown Family History Family History Father Family history of lung cancer, Onset Age: 80 Mother Family history of malignant neoplasm of ovary, Onset Age: 75 Social History Social History Smoking status: Never smoker Alcohol intake: never Gender identity (if verbalized by the patient): Female Spiritual care concerns: No Exam Narrative: GENERAL: Well-appearing, well-nourished, and in no acute distress. HEAD: Normocephalic, atraumatic. EYES: PERRLA and EOMI. ENT: Nares clear, no rhinorrhea or epistaxis. Mucous membranes moist. NECK: Supple. CHEST: Clear to auscultation. No respiratory distress. HEART: Regular rate and rhythm. No murmur heard. Normal peripheral pulses. ABDOMEN: Soft, nontender, nondistended, normal active bowel sounds. EXTREMITIES: Examination of the right knee shows no joint effus
[2021-02-06] MEDS: oxyCODONE/ACETAMINOPHEN (*CRX) 5-325 MG TABLET 1 TABLET PO (21:50)
[2021-02-06 22:04] VITALS: BP 142/87; PULSE 67; RESP 18; O2SAT 97
== END 2021-02-06 22:05 | disposition home or self-care (01) ==
LOC: ANHED 21:34
PROVIDERS: Emergency Provider Family Medicine; PCP Physician Assistant
DX: M25.512 Pain in left shoulder (principal); M25.561 Pain in right knee; M19.90 Unspecified osteoarthritis, unspecified site; M79.7 Fibromyalgia; I10 Essential (primary) hypertension; E78.00 Pure hypercholesterolemia, unspecified; N81.4 Uterovaginal prolapse, unspecified
CPT/HCPCS: 73030; 73562; 99284; A9270

== ENCOUNTER 2021-10-26 13:15 | Emergency (ER) | payer OTHER, SELFPAY ==
--- NOTE | ~2021-10-26 | XR_ITS ---
XR chest 1V portable DATE: 10/26/2021 13:38 INDICATION: Cough, sore throat for 2 weeks TECHNIQUE: Portable upright AP chest on 10/26/2021 at 1335 hours COMPARISON: 12/13/2020 PA and lateral chest FINDINGS: There are bilateral lower lung infiltrates and/or atelectasis. No pleural effusion. Pulmona ry vascularity appears within normal range. Heart size appears normal. Aortic calcification and unfolding. Osteopenia. IMPRESSION: Patchy bilateral lower lung infiltrate and/atelectasis Reviewed, dictated and finalized at location A.
[2021-10-26 13:21] VITALS: BP 180/70; PULSE 70; RESP 18; TEMP 36.4; O2SAT 99
--- NOTE | 2021-10-26 13:43 | ED.URI ---
HPI - URI/Sore Throat General Chief Complaint: Upper Respiratory Infection <GERMAN De Leon Last Filed: 10/26/21 17:52> Stated Complaint: cough x 1 week <Lily Rios PA-C - Last Filed: 10/26/21 17:52> Time Seen by Provider: 10/26/21 13:28 <GERMAN De Leon Last Filed: 10/26/21 17:52> History of Present Illness HPI Narrative: Patient is a 70-year-old female with a history of high blood pressure, high cholesterol, here for evaluation of cough, congestion, and sore throat for the past 2 weeks. Patient denies sick contacts, states she is vaccinated against COVID and flu. Reports that her cough is productive of clear sputum, and is worsening. Her cough is worse at nighttime. Denies relief after [id number] cough medicine. Denies fevers, chills, chest pain, shortness of breath, leg swelling, abdominal pain, nausea, vomiting. <GERMAN De Leon Last Filed: 10/26/21 17:52> Related Data Home Medications: Home Medications Medication Instructions Recorded Confirmed lisinopril 10 mg tablet 10 mg PO DAILY 07/13/20 09/07/20 cyanocobalamin (vitamin B-12) 1,000 mcg PO DAILY 08/30/20 09/07/20 1,000 mcg tablet loratadine 10 mg tablet (Claritin) 10 mg PO PRN PRN allergy symptoms 08/30/20 09/07/20 multivitamin-iron (hematinic) 1 tablet PO DAILY 08/30/20 09/07/20 omega-3 fatty acids 1,000 mg PO DAILY 08/30/20 09/07/20 omeprazole 20 mg capsule,delayed 40 mg PO DAILY 08/30/20 09/07/20 release simvastatin 40 mg tablet 40 mg PO DAILY 08/30/20 09/07/20 <GERMAN De Leon Last Filed: 10/26/21 17:52> Allergies/Adverse Reactions: Allergies Allergy/AdvReac Type Severity Reaction Status Date / Time No Known Allergies Allergy Verified 02/06/21 21:06 <Lily Rios PA-C - Last Filed: 10/26/21 17:52> Review of Systems Review of Systems: Gen.: Denies fevers or chills Eyes: Denies eye pain or visual change ENT: Reports congestion and sore throat Respiratory: Reports cough. CV: Denies chest pain or palpitations GI: Denies abdominal pain nausea, emesis or diarrhea denies burning, urgency, frequency or hematuria Musculoskeletal: Denies back pain or muscle pain Neuro: Denies numbness, tingling, weakness or focal weakness Skin: Denies rash Except as documented, all other systems reviewed and negative <Lily Rios PA-C - Last Filed: 10/26/21 17:52> PMFSH Past Medical History Medical History: Medical History (Updated 10/27/21 @ 00:00 by Rufina Wtat) Arthritis Fibromyalgia GERD (gastroesophageal reflux disease) H/O: HTN (hypertension) Hx of cataract Hypercholesteremia Prolapsed bladder Uterine prolapse <Lily Rios PA-C - Last Filed: 10/26/21 17:52> Surgical History Surgical History: Surgical History Surgical history unknown <Lily Rios PA-C - Last Filed: 10/26/21 17:52> Family History Family History: Family History Father Family history of lung cancer, Onset Age: 80 Mother Family history of malignant neoplasm of ovary, Onset Age: 75 <Lily Rios PA-C - Last Filed: 10/26/21 17:52> Social History Social History: Social History Smoking status: Never smoker Alcohol intake: never Gender identity (if verbalized by the patient): Female Spiritual care concerns: No <Lily Rios PA-C - Last Filed: 10/26/21 17:52> Exam Narrative: APPEARANCE: Well appearing, no pain in distress, well-nourished. Head: normocephalic and atraumatic. EYES: PERRLA/EOMI, conjunctivae clear NOSE: Mild clear nasal drainage. EARS: External ear normal in appearance THROAT: Oropharynx is clear. Mucous membranes are moist. No tonsillar swelling or exudates. NECK: Supple. No adenopathy, n
[2021-10-26 14:17] LABS: Basophils Percent Auto 0.8 % (0.2-1.2); Eosinophils Absolute Auto 0.2 K/mm3 (0-0.3); Eosinophils Percent Auto 3.4 % (0-4.4); Hematocrit 38.1 % (37.0-47.0); Hemoglobin 12.5 g/dL (12.0-15.0); Immature Granulocyte Absolute 0.02 K/mm3 (0.00-0.031); Immature Granulocyte Percent A 0.4 % (0-0.5); Lymphocytes Absolute Auto 1.83 K/mm3 (0.9-3.2); Lymphocytes Percent Auto 34.9 % (18.3-44.2); Mean Corpuscular HGB Conc 32.8 g/dl (32-36); Mean Corpuscular Hemoglobin 30.8 pg (26-34); Mean Corpuscular Volume 93.8 fl (80-100); Mean Platelet Volume 9.3 fl (7.4-10.4); Monocytes Absolute Auto 0.6 K/mm3 (0.1-0.6); Monocytes Percent Auto 10.7 % (2.6-8.5); Neutrophils Absolute Auto 2.6 K/mm3 (1.3-6.7); Neutrophils Percent Auto 49.8 % (45.5-73.1); Platelet Count Result 188 k/mm3 (150-375); Red Blood Count 4.06 M/mm3 (4.2-5.4); Red Cell Distribution Width 12.7 % (11.5-14.5); White Blood Count 5.2 K/mm3 (4.5-10.0)
[2021-10-26 14:24] LABS: Influenza A QL RT-PCR Negative (Negative); Influenza B QL RT-PCR Negative (Negative); SARS-CoV-2 RNA PCR Negative
[2021-10-26 14:28] LABS: Alanine Aminotransferase 20 U/L (6-35); Alkaline Phosphatase 56 U/L (38-126); Anion Gap 4 mmol/L (8-16); Aspartate Amino Transferase 37 U/L (14-36); Bilirubin,Total 0.4 mg/dL (0.2-1.3); Blood Urea Nitrogen 15 mg/dL (7-17); Calcium 8.7 mg/dL (8.4-10.2); Carbon Dioxide 29 mmol/L (22-30); Chloride 102 mmol/L (98-107); Estimated CRCL calculation 74 ml/min; Estimated Glomerular Filt Rate > 60; Glucose 97 mg/dL (65-110); Potassium 4.5 mmol/L (3.4-5.0); Sodium 135 mmol/L (137-145)
[2021-10-26 15:01] VITALS: BP 128/81; PULSE 55; RESP 18; O2SAT 96
== END 2021-10-26 15:03 | disposition home or self-care (01) ==
PROVIDERS: Physician Assistant; Emergency Provider Emergency Medicine; PCP Physician Assistant
DX: J18.9 Pneumonia, unspecified organism (principal); Z20.822 Contact with and (suspected) exposure to COVID-19; I10 Essential (primary) hypertension; E78.00 Pure hypercholesterolemia, unspecified; M79.7 Fibromyalgia; K21.9 Gastro-esophageal reflux disease without esophagitis; M19.90 Unspecified osteoarthritis, unspecified site; H26.9 Unspecified cataract
CPT/HCPCS: 36415; 71045; 80053; 85025; 87502; 99283; C9803; U0003; U0005

== ENCOUNTER 2021-10-31 13:41 | Outpatient (CLI) | payer OTHER, SELFPAY ==
--- NOTE | ~2021-10-31 | US_ITS ---
EXAMINATION: US art doppler w press LE BI DATE: 10/31/2021 15:04 INDICATION: Peripheral vascular disease TECHNIQUE: Segmental pressures and plethysmographic and Doppler waveforms of the brachial and lower e xtremity arteries were obtained. COMPARISON: None. FINDINGS: Right and left brachial artery pressures of 115 mm Hg and 136 mm Hg, respectively, are concordant (no rmal difference <= 30 mmHg). The right and left high-thigh pressure indices are 1.04 and 1.06, respec tively (normal > 1.2). The right ankle-brachial index (MICHELE) is 1.07 (normal >= 0.9-1). The right great toe-brachial index (T BI) is 0.60 (normal >= 0.6-0.8). The right lower extremity segmental pressure gradients are normal (n ormal gradients <= 20-30 mmHg between adjacent levels on the same leg or the same levels on the two l egs). Arterial waveforms are biphasic with brisk systolic upstrokes throughout the arteries of the ri ght lower limb. The left MICHELE is 1.14. The left TBI is 0.59. The left lower extremity segmental pressure gradients are normal. Arterial waveforms are triphasic at the left common femoral artery and biphasic in the more distal arteries with brisk systolic upstrokes throughout. IMPRESSION: 1. Normal bilateral ABIs but with mildly decreased left and borderline decreased right TBIs consisten t with arterial occlusive disease. Reviewed, dictated and finalized at location B. IMPRESSION: 1. Normal bilateral ABIs but with mildly decreased left and borderline decrease d right TBIs consistent with arterial occlusive disease.
== END 2021-10-31 13:42 | disposition home or self-care (01) ==
LOC: ANHIMG 13:44
PROVIDERS: PCP Physician Assistant; Visit Provider Physician Assistant
DX: I73.9 Peripheral vascular disease, unspecified (principal)
CPT/HCPCS: 93923

== ENCOUNTER 2022-01-24 07:28 | Outpatient (RCR) | payer OTHER, SELFPAY ==
--- NOTE | 2022-01-24 12:23 | PCPTNOTE ---
Patient did not show up for scheduled initial evaluation this date.
== END 2022-04-15 10:10 | disposition home or self-care (01) ==
LOC: ANHGOSHPT 07:28
PROVIDERS: PCP Physician Assistant; Visit Provider Physician Assistant
DX: I73.9 Peripheral vascular disease, unspecified (principal)
CPT/HCPCS: 99199

== ENCOUNTER 2022-02-02 13:30 | Emergency (ER) | payer OTHER, SELFPAY ==
--- NOTE | ~2022-02-02 | CT_ITS ---
EXAMINATION: CTA chest PE protocol DATE: 02/02/2022 15:38 INDICATION: recent covid, cough/SOB, elevated dimer TECHNIQUE: Computed tomography angiography (CTA) of the chest was performed with 100 mL Omnipaque-350 intravenous contrast timed to evaluate the pulmonary arteries. Coronal maximum intensity projection 3D-reconstructions were created by the technologist. The dose-length product (DLP) was 444.81 mGy-cm. Automated exposure control and iterative reconstruction technique were employed. COMPARISON: 07/21/2020. FINDINGS: Lung parenchyma and airways: Senescent change. Mild mosaic attenuation.. Pleura: Unremarkable. Thoracic inlet, axillae and chest wall: Unremarkable. Thoracic aorta: Mild ectasia and moderate arch calcification. Mediastinum: Normal. Heart and pericardium: Normal. Coronary artery calcifications: Mild. Upper abdomen: No significant finding. Bones: No acute osseous finding. Pulmonary arteries: Study quality: Degraded by motion artifact such that subsegmental and non-occlusi ve segmental emboli in the lower lobes could be missed. No pulmonary emboli detected. IMPRESSION: Motion limited evaluation of the lower lobes such that subsegmental and nonocclusive segmental emboli could be missed. Within those constraints, no CT evidence of acute pulmonary embolus. Mosaic attenua tion which can be seen with asthma, bronchiolitis obliterans, hypersensitivity pneumonitis, and chron ic thromboembolic disease. Reviewed, dictated and finalized at location K. IMPRESSION: Motion limited evaluation of the lower lobes such that subsegmental and nonoccl usive segmental emboli could be missed. Within those constraints, no CT evidenc e of acute pulmonary embolus. Mosaic attenuation which can be seen with asthma, bronchiolitis obliterans, hypersensitivity pneumonitis, and chronic thromboemb olic disease.
--- NOTE | ~2022-02-02 | XR_ITS ---
EXAMINATION: XR chest 2V DATE: 02/02/2022 14:00 INDICATION: Cough. COVID-19 pneumonia. TECHNIQUE: Frontal and lateral views of the chest were obtained. COMPARISON: Chest single view 10/26/2021 FINDINGS: The chest demonstrates clear lungs without pneumonia, pleural effusion, or pneumothorax. Th e heart size is normal. IMPRESSION: 1. No acute cardiopulmonary disease. Reviewed, dictated and finalized at location A.
[2022-02-02 13:40] VITALS: BP 143/59; PULSE 65; RESP 18; TEMP 36.6; O2SAT 100
[2022-02-02 14:09] LABS: Basophils Percent Auto 0.6 % (0.2-1.2); Eosinophils Absolute Auto 0.1 K/mm3 (0-0.3); Eosinophils Percent Auto 1.4 % (0-4.4); Hematocrit 38.9 % (37.0-47.0); Hemoglobin 12.9 g/dL (12.0-15.0); Immature Granulocyte Absolute 0.01 K/mm3 (0.00-0.031); Immature Granulocyte Percent A 0.2 % (0-0.5); Lymphocytes Absolute Auto 2.04 K/mm3 (0.9-3.2); Mean Corpuscular HGB Conc 33.2 g/dl (32-36); Mean Corpuscular Hemoglobin 30.5 pg (26-34); Mean Platelet Volume 9.4 fl (7.4-10.4); Monocytes Absolute Auto 0.5 K/mm3 (0.1-0.6); Monocytes Percent Auto 7.4 % (2.6-8.5); Neutrophils Absolute Auto 3.7 K/mm3 (1.3-6.7); Neutrophils Percent Auto 58.4 % (45.5-73.1); Platelet Count Result 233 k/mm3 (150-375); Red Blood Count 4.23 M/mm3 (4.2-5.4); Red Cell Distribution Width 13.1 % (11.5-14.5); White Blood Count 6.4 K/mm3 (4.5-10.0)
--- NOTE | 2022-02-02 14:10 | ED.URI ---
HPI - URI/Sore Throat General Chief Complaint: Upper Respiratory Infection Stated Complaint: covid + 18 days ago with cough Time Seen by Provider: 02/02/22 13:45 Source: patient and family Mode of arrival: ambulatory Limitations: no limitations History of Present Illness HPI Narrative: Patient is a 71-year-old female who presents to the ED with report of intermittently productive cough. Family member at bedside assisted in providing information. Patient reports she was diagnosed with COVID-19 18 days ago. She has had a persistent cough over the last 10 days. She became concerned she was developing pneumonia which prompted her presentation. She has been taking Robitussin at home with some relief. She has had some intermittent mild SOB with her cough attacks, but denies any chest pain, fevers, runny nose, congestion, abdominal pain, nausea, vomiting, new pain or swelling to BLE. Related Data Home Medications Medication Instructions Recorded Confirmed lisinopril 10 mg tablet 10 mg PO DAILY 07/13/20 09/07/20 cyanocobalamin (vitamin B-12) 1,000 mcg PO DAILY 08/30/20 09/07/20 1,000 mcg tablet loratadine 10 mg tablet (Claritin) 10 mg PO PRN PRN allergy symptoms 08/30/20 09/07/20 multivitamin-iron (hematinic) 1 tablet PO DAILY 08/30/20 09/07/20 omega-3 fatty acids 1,000 mg PO DAILY 08/30/20 09/07/20 omeprazole 20 mg capsule,delayed 40 mg PO DAILY 08/30/20 09/07/20 release simvastatin 40 mg tablet 40 mg PO DAILY 08/30/20 09/07/20 Allergies Allergy/AdvReac Type Severity Reaction Status Date / Time No Known Allergies Allergy Verified 02/06/21 21:06 Review of Systems Review of Systems: CONSTITUTIONAL: Denies fever, chills, or sweats. ENT: Denies rhinorrhea, congestion, sore throat. CARDIOVASCULAR: Denies chest pain, edema. RESPIRATORY: Reports cough, mild SOB. GASTROINTESTINAL: Denies abdominal pain, nausea, vomiting. MUSCULOSKELETAL: Denies BLE pain. All systems reviewed & are unremarkable except as noted in HPI and below PMFSH Past Medical History Medical History (Updated 02/02/22 @ 14:16 by Shraddha Young PA-C) Arthritis Fibromyalgia GERD (gastroesophageal reflux disease) H/O: HTN (hypertension) Hx of cataract Hypercholesteremia Prolapsed bladder Uterine prolapse Surgical History Surgical History Surgical history unknown Family History Family History Father Family history of lung cancer, Onset Age: 80 Mother Family history of malignant neoplasm of ovary, Onset Age: 75 Social History Social History Smoking status: Never smoker Alcohol intake: never Gender identity (if verbalized by the patient): Female Spiritual care concerns: No Exam Narrative: GENERAL: Well appearing, well-nourished, non-toxic, in no acute distress. HEAD: Normocephalic, atraumatic. NECK: Supple. No adenopathy, no masses. RESPIRATORY: Airway patent, respirations nonlabored. Clear to auscultation bilaterally, no rales, rhonchi, wheezing. Occasional coughing on exam. CARDIOVASCULAR: Regular rate and rhythm without murmurs, rubs, or gallops. Peripheral pulses 2+ and equal bilaterally. ABDOMINAL: Soft, nontender, nondistended, no hepatosplenomegaly. Normoactive BS. MUSCULOSKELETAL: Moves all extremities. Strength/ROM intact without gross deformities or TTP. No edema. No calf tenderness. SKIN: Warm, dry, normal color. No rashes. NEURO: A&O X3. Speech clear. Cranial nerves II-XII grossly intact. Steady gait. No ataxic movements. PSYCHIATRIC: Appropriate mood and affect. Normal interaction. Course Vital Signs Vital signs: Vital Signs Temperature 97.9 F 02/02/22 13:40 Pulse Rate 65 02/02/22 13:40 Respiratory Rate 18 02/02/22 13:40 Blood Pressure 143/59 H 02/02/22 13:40 Pulse Oximetry 100 02/02/22 13:40 Oxygen Delivery Room Air
[2022-02-02 14:20] LABS: Alanine Aminotransferase 22 U/L (6-35); Albumin Level 4.4 g/dL (3.5-5.1); Alkaline Phosphatase 53 U/L (38-126); Anion Gap 12 mmol/L (8-16); Aspartate Amino Transferase 39 U/L (14-36); Bilirubin,Total 0.6 mg/dL (0.2-1.3); Blood Urea Nitrogen 20 mg/dL (7-17); Calcium 8.9 mg/dL (8.4-10.2); Carbon Dioxide 31 mmol/L (22-30); Chloride 97 mmol/L (98-107); Estimated Glomerular Filt Rate > 60; Glucose 127 mg/dL (65-110); Sodium 140 mmol/L (137-145)
[2022-02-02 14:26] LABS: D Dimer 1.01 ug/mL (<0.48)
[2022-02-02 17:08] VITALS: BP 135/77; PULSE 78; RESP 18; O2SAT 99
== END 2022-02-02 17:09 | disposition home or self-care (01) ==
PROVIDERS: Physician Assistant; Emergency Provider Emergency Medicine; PCP Physician Assistant
DX: R05.1 Acute cough (principal); Z86.16 Personal history of COVID-19; M19.90 Unspecified osteoarthritis, unspecified site; K21.9 Gastro-esophageal reflux disease without esophagitis; E78.5 Hyperlipidemia, unspecified
CPT/HCPCS: 36415; 71046; 71275; 80053; 85025; 85380; 99284; Q9967

== ENCOUNTER 2022-07-31 11:59 | Outpatient (CLI) | payer OTHER, SELFPAY ==
--- NOTE | ~2022-07-31 | XR_ITS ---
Thoracic spine: Clinical Indication: Back pain AP and lateral views were performed. No fracture is seen. There is normal alignment of the vertebrae. The intervertebral disc spaces appe ar normal. Paravertebral soft tissues appear normal. Impression: No significant abnormalities noted. Reviewed, dictated and finalized at [facility]. EN THERAPIST Impression: No significant abnormalities noted.
== END 2022-07-31 12:00 | disposition home or self-care (01) ==
PROVIDERS: PCP Physician Assistant; Visit Provider Physician Assistant
DX: M54.6 Pain in thoracic spine (principal)
CPT/HCPCS: 72070

== ENCOUNTER 2023-01-22 02:30 | Emergency (ER) | payer OTHER, SELFPAY ==
[2023-01-22 02:33] VITALS: BP 103/53; PULSE 62; RESP 15; TEMP 37; O2SAT 99
--- NOTE | 2023-01-22 02:37 | ED.FEMALEGU ---
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 The burning sensation is described as mild to moderate, persistent and nonradiating. She denies associated abdominal pain, nausea, vomiting or fevers. She has no other complaints at this time Related Data Home Medications Medication Instructions Recorded Confirmed lisinopril 10 mg tablet 10 mg PO DAILY 07/13/20 09/07/20 cyanocobalamin (vitamin B-12) 1,000 mcg PO DAILY 08/30/20 09/07/20 1,000 mcg tablet loratadine 10 mg tablet (Claritin) 10 mg PO PRN PRN allergy symptoms 08/30/20 09/07/20 multivitamin-iron (hematinic) 1 tablet PO DAILY 08/30/20 09/07/20 omega-3 fatty acids 1,000 mg PO DAILY 08/30/20 09/07/20 omeprazole 20 mg capsule,delayed 40 mg PO DAILY 08/30/20 09/07/20 release simvastatin 40 mg tablet 40 mg PO DAILY 08/30/20 09/07/20 Allergies Allergy/AdvReac Type Severity Reaction Status Date / Time No Known Allergies Allergy Verified 02/06/21 21:06 Review of Systems Review of Systems: CONSTITUTIONAL: Denies fever, chills, or sweats. CARDIOVASCULAR: Denies chest pain, palpitations, or edema. RESPIRATORY: Denies cough or dyspnea. GASTROINTESTINAL: Denies abdominal pain, nausea, vomiting, or diarrhea. GENITOURINARY: Dysuria and increased urinary frequency denies hematuria. SKIN: Denies rash or itching. NEUROLOGIC: Denies headache, numbness, dizziness, or weakness. [facility] Past Medical History Medical History (Updated 01/22/23 @ 03:21 by Torsten Duarte MD) Arthritis Fibromyalgia GERD (gastroesophageal reflux disease) H/O: HTN (hypertension) Hx of cataract Hypercholesteremia Prolapsed bladder Uterine prolapse Surgical History Surgical History Surgical history unknown Family History Family History Father Family history of lung cancer, Onset Age: 80 Mother Family history of malignant neoplasm of ovary, Onset Age: 75 Social History Social History Smoking status: Never smoker Alcohol intake: never Living arrangements: with family Gender identity (if verbalized by the patient): Female Spiritual care concerns: No Exam Narrative: GENERAL: Well-developed, well-nourished, and in no acute distress. HEAD: Normocephalic, atraumatic. EYES: PERRLA and EOMI. CHEST: Clear to auscultation. No respiratory distress. No wheezes rales or rhonchi HEART: Regular rate and rhythm. No murmur heard. Normal peripheral pulses. ABDOMEN: Soft, nontender, nondistended, normal active bowel sounds. EXTREMITIES: Normal range of motion. No edema. SKIN: Warm, dry, no rash. NEURO: Alert and oriented x3. Moving all 4 limbs purposefully. PSYCH: Normal mood and affect. Course Course Emergency Course: 03:19 - In the presence of the patient's symptoms, her UA is consistent with urinary tract infection. Will give the first dose of Keflex and phenazopyridine here and discharged with the same. Advised patient follow-up with her primary care doctor. Discussed return and emergency precautions including signs/symptoms of acute abdomen and intractable vomiting. The patient voiced understanding and is comfortable with the plan. All questions answered to her satisfaction. Vital Signs Vital signs: Vital Signs Temperature 98.6 F 01/22/23 02:33 Pulse Rate 62 01/22/23 02:33 Respiratory Rate 15 01/22/23 02:33 Blood Pressure 103/53 L 01/22/23 02:33 Pulse Oximetry 99 01/22/23 02:33 Oxygen Delivery Room Air 01/22/23 02:33 Temperature 98.6 F 01/22
[2023-01-22] MEDS: ACETAMINOPHEN 500 MG TABLET 1000 MG PO (02:56)
[2023-01-22 03:04] LABS: Appearance Urine Cloudy (Clear); Bilirubin Urine Negative (Negative); Blood Urine 2+ (Negative); Color Urine Yellow (Yellow); Glucose Urine UA Negative (Negative); Ketones Urine Negative (Negative); Leukocyte Esterase Ur 3+ LEU/UL (Negative); Nitrate Urine Negative (Negative); Non Pathogenic Casts 0-2; Protein Urine Negative (Negative); Specific Grav Ur 1.009 (1.001-1.035); Squamous Epithelial Cell Urine None seen /hpf (Few); Urobilinogen Urine 0.2 mg/dL (<2.0); WBC Urine 51-100 /hpf; pH Urine 5.5 (5.0-9.0)
[2023-01-22 03:17] LABS: Bacteria Urine 1+ /hpf
[2023-01-22 03:18] LABS: Add Urine Microscopic? YES
[2023-01-22] MEDS: CEPHALEXIN 500 MG CAPSULE PO (03:32)
[2023-01-22] MEDS: PHENAZOPYRIDINE HCL 100 MG TABLET 200 MG PO (03:33)
== END 2023-01-22 03:37 | disposition home or self-care (01) ==
PROVIDERS: Emergency Provider Preventive Medicine Aerospace Medicine; PCP Physician Assistant
DX: N39.0 Urinary tract infection, site not specified (principal); I10 Essential (primary) hypertension; E78.00 Pure hypercholesterolemia, unspecified; K21.9 Gastro-esophageal reflux disease without esophagitis; M79.7 Fibromyalgia; H26.9 Unspecified cataract
CPT/HCPCS: 81001; 87086; 87088; 99283; A9270

== ENCOUNTER 2023-11-25 12:16 | Outpatient (CLI) | payer OTHER, SELFPAY ==
--- NOTE | ~2023-11-25 | XR_ITS ---
[id number] Ordering provider: Sofy Garcia, PA History: . NECK PAIN, NKI . Comparison: None. FINDINGS: VERTEBRAL BODIES: Normal height and alignment. No visible fracture or subluxation. The dens is intact . Degenerative changes of the spine. DISK SPACES: Narrowing of the disc C4-C5. Multilevel uncovertebral joint osteoarthritic changes. PARASPINOUS SOFT TISSUES: No prevertebral soft tissue swelling. IMPRESSION: No acute osseous abnormality cervical spine. Reviewed, dictated and finalized at location A.
--- NOTE | ~2023-11-25 | XR_ITS ---
3 VIEWS THORACIC SPINE Ordering provider: Sofy Garcia, BRAN History: . THORACIC BACK PAIN, NKI . Comparison: July 31, 2022 FINDINGS: VERTEBRAL BODIES: Normal height and alignment. No visible fracture or subluxation. Degenerative juan es of the spine. DISK SPACES: Narrowing of multiple disc spaces in the midthoracic area. SOFT TISSUES: Normal. IMPRESSION: No acute osseous abnormality of the thoracic spine. Reviewed, dictated and finalized at location A.
--- NOTE | ~2023-11-25 | XR_ITS ---
3 VIEWS LUMBAR SPINE Ordering provider: Sofy Garcia, BRAN History: . SPINAL STENOSIS OF LUMBAR REGION, NKI . Comparison: None. FINDINGS: VERTEBRAL BODIES:Dextroscoliosis. No visible fracture or subluxation. DISK SPACES: Narrowing of the disc spaces L2-L3, L4-L5 and L5-S1. Multilevel facet joint disease. SOFT TISSUES: Normal. IMPRESSION: No acute osseous abnormality lumbar spine. Reviewed, dictated and finalized at location A.
== END 2023-11-25 12:17 | disposition home or self-care (01) ==
LOC: ANHIMG 12:18
PROVIDERS: PCP Physician Assistant; Visit Provider Physician Assistant
DX: M48.061 Spinal stenosis, lumbar region without neurogenic claudication (principal); M54.2 Cervicalgia; M54.6 Pain in thoracic spine
CPT/HCPCS: 72040; 72070; 72100

== ENCOUNTER 2024-01-18 10:00 | Outpatient (RCR) | payer OTHER, SELFPAY ==
--- NOTE | 2023-12-10 08:58 | OPREHPOC ---
Outpatient Therapy Plan of Care This is a Multidisciplinary Plan of Care that may contain components documented by all disciplines (PT, OT, and ST.) PT Problem 1 PT Problem #1 Knowledge Deficit PT Goal 1 Goal *indep with HEP Target Visit 10 PT Problem 2 PT Problem #2 Pain PT Goal 1 Goal 1* report pain at worst in back of 5/10 2* self assessment Oswestry rating of 42% limitation in activity level 3* radicular pain R LE to knee at worst Target Visit 10 PT Problem 3 PT Problem #3 Impaired Strength PT Goal 1 Goal increase strength of trunk and hips, to improve stability to spine and position of spine 1* pt perform 20 reps of mat and standing exercises Target Visit 10 PT Problem 4 PT Problem #4 Impaired Functional Mobility PT Goal 1 Goal 1* pt transfer supine/sit indep 2* 2 minute walking test distance of 350' with cane Target Visit 10
--- NOTE | 2023-12-10 08:58 | PTOPEVAL1 ---
Assessment and note entered by Ally Machuca PT Evaluation Information Assessment Status Evaluation ICD-10 Condition Codes (PT) Cervicalgia M54.2,Pain in low back M54.50, Difficulty Walking R26.2,R26.9 Onset about 1 year Subjective Information back pain for about the past 10 years, gradually more pain; had lumbar laminectomy in 2017; xrays of lumbar: dextroscoliosis, multilevel facet joint disease, decrease disc space, L2-3-4-5 -S1; Activity: use cane in community/ not in home; does light home tasks only due to pain assist with home tasks; indep with bathing, dressing; Reported Pain Level Pain Score Self Report BACK Additional Pain Score Comments pain range in the past week: 2-8/10; bilateral lumbar- sacral and into R LE, constant to mid calf intermittent to foot increase pain: end of day, more home activities decrease pain: sit in her favorite chair; over the counter meds, hot shower have not been using heating pad--instruct on PRN use pain over neck, shoulders, thoracic and low back Assessment PT Clinical Summary Rani has the diagnosis of cervical and lumbar pain. The low back is more painful at this time, so initiated eval for lumbar area. Radicular pain into R LE. Her history includes lumbar laminectomy in 2017, R TKR and chronic neck and back pain. xray of cervical and lumbar report degenerative changes at both. She does not speak Croatian, so her interpreted for her. Self assessment Oswestry funcitonal rating of 56% limitation in activity level. With the evaluation: she has poor standing position of her spine, with rotation and scoliosis 2 minute walking test distance of 280' with the cane; required assist with supine/sit transfer due to pain; sit/stand requires use of both hands on chair arm rests; in supine- unable to tolerate any strengthen activities due to increase pain in back; flexibility of both hamstrings and piriformis are WNL. Discussed aquatic therapy with pt and she is not interested in--has a fear of water.
--- NOTE | 2024-01-18 10:55 | PTOPDC ---
Assessment and note entered by Ally Machuca, PT Discharge Report Assessment Status Discharge ICD-10 Condition Codes (PT) Cervicalgia M54.2,Pain in low back M54.50, Difficulty Walking R26.2,R26.9 Onset about 1 year Subjective Information interprets for pt: she is doing better, more active, doing yard work; with walking more has more pain, walk about 40-60 minutes then have to sit down; is doing the stretching at home; ready to be finished with therapy. Discussed with pt--original order had diagnosis of neck pain also. She does not want treatment for her neck at this time. Informed her if she would need therapy for her neck, would have to get a new order. Reported Pain Level Pain Score Self Report Additional Pain Score Comments pain the past week, stay about 2/10 most of the time, but up to 5/10 with walking; has R knee pain from previous surgery; standing and walking tolerance about 40-60 minutes then have to sit down and rest; no radicular pain into R LE; Assessment PT Clinical Summary Rani has received 9 PT sessions for low back pain. Compared to the initial evaluation: pain rating from 2-8/10 to 2-5/10; radicular pain into R foot intermittent to no radicular pain; self assessment with Oswestry rating of 56% to 36% limitation in activity level; 2 minute walking test distance from 280' with cane to 350' without device; supine/sit transfer labored and pain increase to indep with mobility; increase strength of trunk and hips; education for HEP and self management of pain. The goals were partially achieved. Discharge PT services. She has orders for cervical pain, but did not want treatment for it at this time. Plan of Care PT Services Indicated No
== END 2024-01-18 11:52 | disposition home or self-care (01) ==
LOC: ANHPT 10:00
PROVIDERS: PCP Physician Assistant; Visit Provider Physician Assistant
DX: M54.50 Low back pain, unspecified (principal); M54.2 Cervicalgia
CPT/HCPCS: 97014; 97110; 97162; 97530; G0283